=== PATIENT | male | born 1960 | race African-American/Black ===

== ENCOUNTER → 2018-08-21 | Outpatient (CLI) | payer OTHER ==
[~2018-08-21] VITALS: Ht 167.6 cm; Wt 77.1 kg
[~2018-08-21] MED LIST: ACCUNEB SO1.25 MG/1 INH; ASPIR 8181 MG PO; COREG6.25 MG PO; FLONASE 0.05%50 MCG NASAL; IBUPROFEN 800800 MG PO; LISINOPRIL-HCT1 EAC1 PO; LISINOPRIL40 MG PO; NORCO 5-325 TA1 EACH PO; PROAIR HFA8.5 GM INH
[2018-08-21 07:08] VITALS: BP 163/80
--- NOTE | 2018-08-21 12:35 | CATHLAB ---
[facility] [place] [address] INVASIVE PROCEDURE REPORT Name: YUAN OJEDA Room #: REG [facility]#: [id number] ������������� Admission: 08/21/18 ������������� Attend Phys: Bob Gonzalez MD Discharge: ��� ������������� ��� Date of : 60 Date of Service: 08/21/18 1235 �� Report #: [id number] �������� ��������������������������������������������[id number] THIS REPORT FOR: //name// APPROVED REPORT Study performed: 08/21/2018 07:33:26 Patient Details The patient is a 57 year-old male Event Personnel Bob Gonzalez Lean Leader, Rahul Parker RN RN, Aj Bailey RN RN, Lynn Taylor, Vesna Larsen Monitor Procedures Performed Left Heart Cath w/or w/o Coronaries [id number] [facility] , Aortogram Indication Dyspnea, Cardiomyopathy Risk Factors Peripheral Vascular Disease, Hypercholesterolemia, Hypertension Procedure Narrative The right wrist was infiltrated with 1% Lidocaine subcutaneous anesthesia. A TRANSRADIAL SLENDER 6F GLIDESHEATH KIT #[id number] sheath was inserted into the RIGHT RADIAL ARTERY^. Coronary angiography was performed using coronary diagnostic catheters. The right coronary system was accessed and visualized with a 5FR JR 3.5 #[id number] catheter. The left coronary system was accessed and visualized with a JL4 catheter. The left ventricle was accessed and visualized with a 5FR PIG 145 ANGLED #[id number] catheter. An aortogram of the abdominal aorta was performed. Hemostasis was obtained with manual pressure following sheath removal without any complications. The patient tolerated the procedure well and there were no complications associated with the procedure. There was no hematoma. Initially, 4 Slovenian sheath was introduced into the right femoral artery via a modified Seldinger technique. 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 A cardiac catheterization was performed via the right radial artery access. A [address] Slovenian [address] place in the infrarenal aorta via the right radial artery access. An abdominal aortogram was performed revealing no [facility] [address] [place] [address] INVASIVE PROCEDURE REPORT Name: RUSTYYUANTRISTON CELESTIN Room #: REG CL [facility] [place]#: [id number] ������������� Admission: 08/21/18 ������������� Attend Phys: Bob Gonzalez MD Discharge: ��� ������������� ��� Date of : 60 Date of Service: 08/21/18 1235 �� Report #: [id number] �������� ��������������������������������������������[id number] evidence for aneurysm. 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 There is mild disease in the left common iliac artery. Intraoperative Conscious Sedation Sedation start time: 808 Case end Time: 858 Fentanyl 50 mcg Versed 1 mg Fluoro Time: 5.54 minutes Dose: DAP 5729.00 cGycm2 462 mGy Diagnostic Cath Left Main This is a large caliber vessel, patent with no flow-limiting lesions. LAD The LAD is a moderate size caliber vessel, traversing the anterior wall and wrapping around the apex. There is mild disease in the proximal segment, less than 20%. Diagonal 1 This is a patent vessel, with no flow-limiting lesions. Circumflex This is a moderate size caliber vessel, supplying one OM vessel. OM1 This is a moderate size caliber vessel, patent with no flow-limiting lesions. As it travels down the lateral wall, it supplies multiple branches. Right Coronary This is a dominant vessel, patent with no flow-limiting lesions. R PDA This is a moderate size caliber vessel, patent with no flow-limiting lesions. RPLV This is a moderate size caliber vessel, patent with no flow-limiting lesions. Left Ventriculography The left ventricle is normal in size with decreased contractility. The left ventricular ejection fraction is estimated to be 35%. Hemodynamics The aortic pressure is 146/74 mmHg with a mean of 101 mmHg. The left ventricular pressure is 154/1 mmHg with a mean of mmHg. The left ventricular end diastolic pressure is 17 mmHg. Conclusion 1. Nonischemic cardiomyopathy. 2. Mild disease in the proximal LAD. 3. 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 4. Recommend aggressive risk factor management. ��������������������������������������������� <ELECTRONICALLY SIGNED> ���������������������������������������� By: Bob Gonzalez MD ��������������������������������������������� 08/21/18 1235 1235 1235 Bob Gonzalez MD /INF
== END | disposition home or self-care (01) ==
LOC: CATH 06:36
DX: I42.8 Other cardiomyopathies (principal); J45.909 Unspecified asthma, uncomplicated; G89.29 Other chronic pain; E78.5 Hyperlipidemia, unspecified; I10 Essential (primary) hypertension; F17.210 Nicotine dependence, cigarettes, uncomplicated; I74.5 Embolism and thrombosis of iliac artery; Z79.82 Long term (current) use of aspirin; Z79.899 Other long term (current) drug therapy

== ENCOUNTER → 2018-09-12 | Outpatient (CLI) | payer OTHER ==
[~2018-09-12] VITALS: Ht 167.6 cm; Wt 74.8 kg
[~2018-09-12] MED LIST changes: +LIPITOR40 MG PO; +OXYCODONE HCL20 M1 PO; +PLAVIX 75 MG TA75 M1 PO
[2018-09-12 10:27] VITALS: BP 165/85
== END | disposition home or self-care (01) ==
LOC: SPEC 09:44
DX: I70.213 Atherosclerosis of native arteries of extremities with intermittent claudication, bilateral legs (principal); I70.1 Atherosclerosis of renal artery; I10 Essential (primary) hypertension; E78.5 Hyperlipidemia, unspecified; I42.9 Cardiomyopathy, unspecified; J45.909 Unspecified asthma, uncomplicated; M54.5 Low back pain; G89.29 Other chronic pain; F17.210 Nicotine dependence, cigarettes, uncomplicated; Z98.890 Other specified postprocedural states; Z79.82 Long term (current) use of aspirin; Z79.899 Other long term (current) drug therapy

== ENCOUNTER → 2020-02-16 | Outpatient (CLI) | payer OTHER | LOC: SJCVCIMAG 08:52 | PROVIDERS: ATTEND Internal Medicine Cardiovascular Disease | DX: I07.1 Rheumatic tricuspid insufficiency (principal); I11.9 Hypertensive heart disease without heart failure; I42.9 Cardiomyopathy, unspecified; I73.9 Peripheral vascular disease, unspecified; M79.604 Pain in right leg; M79.605 Pain in left leg; F17.200 Nicotine dependence, unspecified, uncomplicated; Z79.82 Long term (current) use of aspirin; Z79.899 Other long term (current) drug therapy ==

== ENCOUNTER → 2021-01-24 | Outpatient (CLI) | payer OTHER | LOC: SJCVCIMAG 08:12 | PROVIDERS: ATTEND Nuclear Medicine Nuclear Cardiology | DX: I65.23 Occlusion and stenosis of bilateral carotid arteries (principal); I73.9 Peripheral vascular disease, unspecified; I10 Essential (primary) hypertension; I42.9 Cardiomyopathy, unspecified; I77.9 Disorder of arteries and arterioles, unspecified; E78.00 Pure hypercholesterolemia, unspecified; M79.604 Pain in right leg; M79.605 Pain in left leg; F17.200 Nicotine dependence, unspecified, uncomplicated; Z79.82 Long term (current) use of aspirin; Z79.899 Other long term (current) drug therapy; Z72.89 Other problems related to lifestyle ==

== ENCOUNTER 2021-02-27 19:38 | Emergency (ER) | payer OTHER ==
[~2021-02-27] VITALS: Ht 162.6 cm; Wt 68.0 kg
[2021-02-27 20:47] LABS: ABSOLUTE NEUTROPHILS 13.4 thou/uL (1.4-8.2); BASOPHILS 0.1 % (0.0-2.0); EOSINOPHILS 0.3 % (0.0-3.0); HEMOGLOBIN 12.9 gm/dL (14.0-18.0); LYMPHOCYTES 10.9 % (24.0-44.0); MCH 27.1 pg (26.0-34.0); MCHC 32.2 g/dL (28.0-37.0); MCV 84.3 fL (80.0-100.0); PLATELET COUNT 335 thou/uL (150-400); POLYS 77.7 % (36.0-66.0); RBC 4.74 mil/uL (4.50-6.00); WBC 17.2 thou/uL (4.0-11.0)
[2021-02-27 20:48] LABS: URINE BILIRUBIN NEGATIVE (Negative); URINE BLOOD 2+ (Negative); URINE CLARITY SL CLOUDY; URINE COLOR YELLOW; URINE GLUCOSE-RANDOM* NEGATIVE (Negative); URINE KETONES NEGATIVE (Negative); URINE LEUKOCYTES-REFLEX NEGATIVE (Negative); URINE NITRITE-REFLEX NEGATIVE (Negative); URINE PROTEIN (DIPSTICK) 1+ (Negative); URINE SPECIFIC GRAVITY 1.025 (1.005-1.035); URINE UROBILINOGEN 0.2 E.U./dl (0.2-1.0)
[2021-02-27 20:59] LABS: ALBUMIN 3.8 g/dL (3.4-5.0); DIRECT BILIRUBIN < 0.1 mg/dL (<0.1-0.2); SGOT 30 U/L (15-37); SGPT 43 U/L (16-63); TOTAL BILIRUBIN 0.4 mg/dL (0.2-1.0); TOTAL PROTEIN 7.9 g/dL (6.4-8.2)
[2021-02-27 21:00] LABS: CASTS None Seen /LPF (None Seen); SQUAMOUS 0-3 Few /LPF (0-3); URINE RBC 1-2 Rare /HPF (NONE SEEN); URINE WBC-REFLEX 0-5 Rare /HPF (0-5)
[2021-02-27 21:01] LABS: BACTERIA-REFLEX 1-9 Few /HPF (None Seen); CRYSTALS None Seen /LPF (None Seen)
[2021-02-27 21:56] LABS: CREATININE 1.3 mg/dL (0.7-1.3); POTASSIUM 3.1 mmol/L (3.5-5.1)
[2021-02-27] MEDS ORDERED: AUGMENTIN 875-1 EACH PO (23:24)
[2021-02-28 00:24] VITALS: BP 133/84
--- NOTE | 2021-02-28 07:56 | EKG ---
[place] [address] [place] [address] ELECTROCARDIOGRAM REPORT Name: YUAN OJEDA [id number] Admission: 02/27/21 Attend Phys: Discharge: 02/28/21 Date of : 60 Report #: [id number] Test Date: 2021-02-27 Test Time: 20:28:47 Pat Name: YUAN OJEDA Department: Room: Gender: M Junior Assistant Manager: LEA : 1960 Requested By: Stephenie Huang Order Number: [id number] MD: Fermin Rosales Measurements Intervals [place] Rate: 87 P: 43 CA: 152 QRS: -33 QRSD: 98 T: -26 QT: 399 QTc: 480 Interpretive Statements Sinus rhythm Abnormal R-wave progression, early transition Left ventricular hypertrophy Borderline T abnormalities, inferior leads Borderline prolonged QT interval Baseline wander in lead(s) V6 Compared to ECG 05/30/2016 19:28:03 Sinus tachycardia no longer present Electronically Signed On 02-28-2021 7:56:12 FARM [employer]PERATIONS MANAGER by Fermin Rosales [email or web address] <ELECTRONICALLY SIGNED> By: Femrin Rosales MD, [facility] 02/28/21 0756 27 27 Fermin Rosales MD, [facility] /EPI
== END 2021-02-28 00:26 | disposition home or self-care (01) ==
LOC: ER 19:38
PROVIDERS: Emergency Medicine
DX: K52.9 Noninfective gastroenteritis and colitis, unspecified (principal); J45.909 Unspecified asthma, uncomplicated; I42.9 Cardiomyopathy, unspecified; E78.5 Hyperlipidemia, unspecified; I10 Essential (primary) hypertension; F17.210 Nicotine dependence, cigarettes, uncomplicated; Z98.890 Other specified postprocedural states; Z79.51 Long term (current) use of inhaled steroids; Z79.82 Long term (current) use of aspirin; Z79.891 Long term (current) use of opiate analgesic